=== PATIENT | male | born 1980 | race Caucasian/White ===

== ENCOUNTER 2018-02-02 15:39 | Emergency (ER) | payer OTHER ==
--- OUTSIDE RECORDS SUMMARY | 2018-02-02 16:22 | XMS REPORT ---
:1980 External Reference #:[id number] Author Organization Ricki Mayers M.D. Address [address] [place] [address] Phone [phone] Care Team Providers Name Role Phone Ricki Mayers M.D. Care Team Information Business Unit Controller Unavailable Payers Type Date Identification Numbers Payment Provider Subscriber Commercial Policy Number: [id number] [employer] PayID: [id number] 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 ETOH Use Rarely consumes alcohol Smoking 02/09/2017 Patient has never smoked Recreational Drug Use Denies Drug Use Daily Caffeine Consumes on average 64oz of soda per day Allergies, Adverse Reactions, Alerts Date Description Reaction Status Severity Comments 12/27/2011 NKDA active Medications Medication Date Status Form Strength Qnty SIG Indications Ordering Provider Zithromax 01/30/ Active Tablets 250mg 6tabs day L04.9 Ricki mello s MYulissa qd,thend ays two thru five one pill every day [facility] Omeprazole 01/30/ Active Capsules 20.6(20Bas 30caps one K21.[address] bhatt) mg daily Thee martin M.D. Levaquin 10/10/ Hx Tablets 500mg 10tabs 1 by 604.90 Ricki 2014 - mouth [place] 01/30/ every sMichael 2015 day Ciprofloxacin 12/27/ Hx Tablets 500mg 28tabs 1 by 604.90 Ricki HCL 2014 - mouth [place] 10/10/ twice a sMichael 2014 day Sulfamethoxazole 06/05/ Hx Tablets 800-160mg 20tabs 1 po bid 681.9 Ricki /Trimethoprim DS 2012 - [place] 12/27/ sMichael 2013 Nizoral 06/05/ Hx 200mg 10unit one qd 692.9 Ricki 2012 - s [place] 02/08/ sMichael 2015 Amoxicillin 10/19/ Hx Tablets 875mg 20tabs 1 po bid 462 Ricki 2012 - [place] 02/08/ sMichael 2015 Amoxicillin 04/27/ Hx Tablets 875mg 20tabs 1 po bid 704.8 Ricki 2011 - [place] 02/08/ Michael martin 2016 Benzonatate 04/27/ Hx Capsules 200mg 30caps one tid 786.2 Ricki 2011 - prn [place] 02/08/ cough Michael martin 2015 Immunizations CPT Code Status Date Vaccine Lot # [id number] Given 12/27/2011 Tdap Vaccine over 7 yrs old [id number] Vital Signs Date Vital Result Comment 01/30/2018 Weight 192.00 lb Body Temperature 99.7 F 02/09/2017 Weight 183.50 lb BP Systolic 100 mmHg BP Diastolic 80 mmHg Height 71.75 inches 5'11.75" Heart Rate 60 /min Body Temperature 97.0 F Respiratory Rate 16 /min BMI (Body Mass Index) 25.1 kg/m2 02/09/2016 Weight 184.00 lb Height 71 inches 5'11" BMI (Body Mass Index) 25.7 kg/m2 01/30/2015 Weight 184.00 lb BP Systolic 106 mmHg BP Diastolic 70 mmHg Height 71 inches 5'11" Heart Rate 76 /min Body Temperature 98.8 F Respiratory Rate 12 /min BMI (Body Mass Index) 25.7 kg/m2 10/10/2014 Weight 182.00 lb BP Systolic 100 mmHg BP Diastolic 60 mmHg 12/27/2013 Weight 182.00 lb BP Systolic 120 mmHg BP Diastolic 60 mmHg Height 71 inches 5'11" Heart Rate 68 /min Body Temperature 98.4 F Respiratory Rate 12 /min BMI (Body Mass Index) 25.4 kg/m2 06/05/2013 Weight 182.00 lb Body Temperature 97.2 F 04/18/2013 Weight 179.00 lb BP Systolic 110 mmHg BP Diastolic 70 mmHg 10/19/2012 Weight 184.00 lb BP Systolic 100 mmHg BP Diastolic 80 mmHg Body Temperature 97.5 F 10/03/2012 Weight 185.00 lb BP Systolic 118 mmHg BP Diastolic 76 mmHg 04/27/2012 Weight 181.00 lb BP Systolic 110 mmHg BP Diastolic 60 mmHg Height 70.6 inches 5'10.60" Body Temperature 98.8 F BMI (Body Mass Index) 25.5 kg/m2 12/27/2011 Weight 181.00 lb BP Systolic 118 mmHg BP Diastolic 70 mmHg Height 70.6 inches 5'10.60" BMI (Body Mass Index) 25.5 kg/m2 Results Test Date Test Result H/L Range Note CBS W/Automated Diff 02/06/2015 White Blood Count 10.2 K/uL 3.4-10.5 Red Blood Count 5.42 M/uL 4.20-5.80 Hemoglobin 15.8 gm/dL 12.8-17.0 Hematocrit 45.2 % 38.0-48.0 Mean Cell Volume 83.4 fl 80.0-96.0 Mean Corpuscular HGB 29.2 pg 27.0-33.0 Mean Corpuscular HGB Conc 35.0 g/dL 31.7-36.0 Platelet Count 287 K/uL 150-400 Red Cell Distri Width SD 38.7 fl 36-51 Red Cell Distri Width %CV 12.7 % 11.6-15.8 Mean Platelet Volume 11.3 fL High 6.6-10.6 Neut% 56.9 % 33.0-73.0 Lymph % 26.0 % 17.0-56.0 [place] % 9.1 % 0.0-10.0 Eo% 6.6 % High 0.0-5.0 Bas% 1.4 % High 0.1-1.0 Neut# 5.78 K/uL 1.8-7.0 Lymph # 2.64 K/uL 1.8-7.0 Bethel # 0.92 K/uL High 0.0-0.8 Eos # 0.67 K/uL High 0.0-0.5 Baso # 0.14 K/uL 0.1-0.2 Basic Metabolic Panel 02/06/2015 Glucose 101 mg/dL 74-106 BUN 16 mg/dL 7-18 Creatinine 1.2 mg/dL 0.6-1.3 Glom Filtration Rate, Estimate >60 mL/min >60 If >60 mL/min >60 1 BUN/Creat 13.3 ratio Sodium 137 mmol/L 136-145 Potassium 4.3 mmol/L 3.5-5.1 Chloride 103 mmol/L 98-107 Carbon Dioxide 25 mmol/L 21-32 Anion Gap 9 mEq/L 8-16 Calcium 9.5 mg/dL 8.5-10.1 LDL Cholesterol Profile 02/06/2015 Cholesterol 183 mg/dL < 200 2 Triglycerides 186 mg/dL < 150 3 HDL Cholesterol 29 mg/dL > 40 4 LDL-Cholesterol 117 mg/dL < 100 5 Liver Function Tests 02/06/2015 Total Protein 8.4 g/dL High 6.4-8.2 Albumin 4.0 g/dL 3.4-5.0 Globulin 4.4 g/dL High 1.9-4.3 Alb/Glob 0.9 ratio Bilirubin,Total 0.5 mg/dL 0.2-1.0 Bilirubin,Direct 0.1 mg/dL 0.0-0.2 Bilirubin,Indirect 0.4 mg/dL 0.0-0.9 Sgot/Ast 27 U/L 15-37 SGPT/Alt 49 U/L 12-78 Alkaline Phosphatase 79 U/L 45-117 Laboratory test finding 02/06/2015 TSH Reflex FT4 and/or 2.55 uIU/mL 0.36 -3.74 6 FT3 Fluid Culture W/ Gram 06/05/2013 Gram Stain See Note 7 Stain Fluid Culture See Note 8 Laboratory test finding 05/04/2013 Troponin-I < 0.02 ng/mL 0.00-0.50 9 CBS W/Automated Diff 05/04/2013 White Blood Count 10.5 K/uL 3.4-10.5 Red Blood Count 4.89 M/uL 4.20-5.80 Hemoglobin 14.7 gm/dL 12.8-17.0 Hematocrit 40.2 % 38.0-48.0 Mean Cell Volume 82.2 fl 80.0-96.0 Mean Corpuscular HGB 30.1 pg 27.0-33.0 Mean Corpuscular HGB Conc 36.6 g/dL High 31.7-36.0 Platelet Count 258 K/uL 150-400 Red Cell Distri Width SD 36.5 fl 36-51 Red Cell Distri Width %CV 12.2 % 11.6-15.8 Mean Platelet Volume 10.9 fL High 6.6-10.6 Neut% 54.7 % 33.0-73.0 Lymph % 28.4 % 17.0-56.0 Bethel % 9.0 % 0.0-10.0 Eo% 6.9 % High 0.0-5.0 Bas% 1.0 % 0.1-1.0 Neut# 5.76 K/uL 1.8-7.0 Lymph # 2.99 K/uL 1.2-4.0 Bethel # 0.95 K/uL High 0.0-0.6 Eos # 0.73 K/uL High 0.0-0.5 Baso # 0.11 K/uL 0.1-0.2 Comprehensive Metabolic Panel 05/04/2013 Glucose 93 mg/dL 76-115 BUN 17 mg/dL 5-23 Creatinine 1.0 mg/dL 0.5-1.4 Glom Filtration Rate, Estimate >60 mL/min >60 If >60 mL/min >60 10 BUN/Creat 17.0 ratio Sodium 139 mmol/L 136-145 Potassium 3.9 mmol/L 3.5-5.1 Chloride 104 mmol/L 98-107 Carbon Dioxide 25 mEq/L 18-29 Anion Gap 14 mEq/L 8-16 Calcium 9.3 mg/dL 8.5-10.1 Total Protein 7.3 g/dL 6.3-8.0 Albumin 3.9 g/dL 3.5-5.0 Globulin 3.4 g/dL 1.9-4.3 Alb/Glob 1.1 ratio Bilirubin,Total 0.5 mg/dL 0.2-1.2 Sgot/Ast 13 U/L Low 16-40 SGPT/Alt 28 U/L Low 30-65 Alkaline Phosphatase 56 U/L 50-136 Basic Metabolic Panel 05/02/2013 Glucose 80 mg/dL 76-115 BUN 16 mg/dL 5-23 Creatinine 1.1 mg/dL 0.5-1.4 Glom Filtration Rate, Estimate >60 mL/min >60 If >60 mL/min >60 11 BUN/Creat 14.5 ratio Sodium 139 mmol/L 136-145 Potassium 3.7 mmol/L 3.5-5.1 Chloride 103 mmol/L 98-107 Carbon Dioxide 31 mEq/L High 18-29 Anion Gap 9 mEq/L 8-16 Calcium 9.8 mg/dL 8.5-10.1 Laboratory test finding 05/02/2013 Uric Acid 3.9 mg/dL 2.1-7.4 Sedimentation Rate 1 mm/hr 0-15 CBS W/Automated Diff 05/02/2013 White Blood Count 11.8 K/uL High 3.4-10.5 Red Blood Count 5.34 M/uL 4.20-5.80 Hemoglobin 15.8 gm/dL 12.8-17.0 Hematocrit 43.6 % 38.0-48.0 Mean Cell Volume 81.6 fl 80.0-96.0 Mean Corpuscular HGB 29.6 pg 27.0-33.0 Mean Corpuscular HGB Conc 36.2 g/dL High 31.7-36.0 Platelet Count 291 K/uL 150-400 Red Cell Distri Width SD 36.6 fl 36-51 Red Cell Distri Width %CV 12.4 % 11.6-15.8 Mean Platelet Volume 11.2 fL High 6.6-10.6 Neut% 55.7 % 33.0-73.0 Lymph % 28.4 % 17.0-56.0 Bethel % 8.1 % 0.0-10.0 Eo% 6.6 % High 0.0-5.0 Bas% 1.2 % High 0.1-1.0 Neut# 6.58 K/uL 1.8-7.0 Lymph # 3.35 K/uL 1.2-4.0 Bethel # 0.95 K/uL High 0.0-0.6 Eos # 0.78 K/uL High 0.0-0.5 Baso # 0.14 K/uL 0.1-0.2 Urinalysis With Microscopic 01/23/2013 Urine Color YELLOW Yellow Urine Clarity SL CLOUDY Clear Urine Glucose - Dipstick NEGATIVE mg/dL Negative Urine Bilirubin - Dipstick NEGATIVE Negative Urine Ketone NEGATIVE mg/dL Negative Urine Specific [place] 1.010 1.010-1.030 Urine Blood LARGE High Negative Urine PH 8.0 High 6.5-7.5 Urine Protein - Dipstick NEGATIVE mg/dL Negative Urine Urobilinogen - Dipstick 0.2 E.U./dL 0.2-1.0 Urine Nitrite - Dipstick NEGATIVE Negative Urine Leuk Esterase NEGATIVE Negative Urine RBC 10-20 rbc/hpf High 0-7 Urine WBC 0-2 wbc/hpf 0-7 Urine Epithelial Cells VERY FEW NONESEEN/lpf Laboratory test finding 01/23/2013 Urine Screen See Note 12 Comprehensive Metabolic Panel 01/23/2013 Glucose 123 mg/dL High 76-115 BUN 14 mg/dL 5-23 Creatinine 1.2 mg/dL 0.5-1.4 Glom Filtration Rate, Estimate >60 mL/min >60 If >60 mL/min >60 13 BUN/Creat 11.6 ratio Sodium 141 mmol/L 136-145 Potassium 3.9 mmol/L 3.5-5.1 Chloride 108 mmol/L High 98-107 Carbon Dioxide 21 mEq/L 18-29 Anion Gap 16 mEq/L 8-16 Calcium 9.3 mg/dL 8.5-10.1 Total Protein 8.1 g/dL High 6.3-8.0 Albumin 4.1 g/dL 3.5-5.0 Globulin 4.0 g/dL 1.9-4.3 Alb/Glob 1.0 ratio Bilirubin,Total 0.5 mg/dL 0.2-1.2 Sgot/Ast 21 U/L 16-40 SGPT/Alt 43 U/L 30-65 Alkaline Phosphatase 69 U/L 50-136 Laboratory test finding 01/23/2013 Lipase 154 U/L 28-380 CBC W/Automated Diff 01/23/2013 White Blood Count 9.6 K/uL 3.4-10.5 Red Blood Count 5.59 M/uL 4.20-5.80 Hemoglobin 16.2 gm/dL 12.8-17.0 Hematocrit 45.3 % 38.0-48.0 Mean Cell Volume 81.0 fl 80.0-96.0 Mean Corpuscular HGB 29.0 pg 27.0-33.0 Mean Corpuscular HGB Conc 35.8 g/dL 31.7-36.0 Platelet Count 319 K/uL 150-400 Red Cell Distri Width SD 35.3 fl Low 36-51 Red Cell Distri Width %CV 12.1 % 11.6-15.8 Mean Platelet Volume 10.8 fL High 6.6-10.6 Neut% 54.9 % 33.0-73.0 Lymph % 27.2 % 17.0-56.0 Bet[place] % 7.9 % 0.0-10.0 Eo% 7.9 % High 0.0-5.0 Bas% 2.1 % High 0.1-1.0 Neut# 5.28 K/uL 1.8-7.0 Lymph # 2.62 K/uL 1.2-4.0 Bethel # 0.76 K/uL High 0.0-0.6 Eos # 0.76 K/uL High 0.0-0.5 Baso # 0.20 K/uL 0.1-0.2 Laboratory test finding 01/19/2013 Liver Function Tests See Note 14 Basic Metabolic Panel See Note 15 Lipase See Note 16 CBS W/Automated Diff See Note 17 Laboratory test finding 01/19/2013 Urine Screen See Note 18 Urinalysis With Microscopic 01/19/2013 Urine Color YELLOW Yellow Urine Clarity SL CLOUDY Clear Urine Glucose - Dipstick NEGATIVE mg/dL Negative Urine Bilirubin - Dipstick NEGATIVE Negative Urine Ketone NEGATIVE mg/dL Negative Urine Specific [place] >=1.030 1.010-1.030 Urine Blood LARGE High Negative Urine PH 6.0 Low 6.5-7.5 Urine Protein - Dipstick 30 mg/dL High Negative Urine Urobilinogen - Dipstick 0.2 E.U./dL 0.2-1.0 Urine Nitrite - Dipstick NEGATIVE Negative Urine Leuk Esterase NEGATIVE Negative Urine RBC 30-50 rbc/hpf High 0-7 Urine WBC 0-2 wbc/hpf 0-7 Urine Epithelial Cells FEW NONESEEN/lpf Urine Bacteria VERY FEW NONESEEN Urine Mucus LARGE NONESEEN Laboratory test finding 10/19/2012 Throat Strep Screen See Note 19 Xray 10/04/2012 CT scan of abd and <pending> pelvis Laboratory test finding 04/27/2012 Throat Strep Screen See Note 20 Comprehensive Metabolic 03/10/2012 Glucose 117 mg/dL High 76-115 Panel BUN 15 mg/dL 5-23 Creatinine 1.1 mg/dL 0.5-1.4 Glom Filtration Rate, Estimate >60 mL/min >60 If >60 mL/min >60 21 BUN/Creat 13.6 ratio Sodium 136 mmol/L 136-145 Potassium 3.4 mmol/L Low 3.5-5.1 Chloride 101 mmol/L 98-107 Carbon Dioxide 27 mEq/L 18-29 Anion Gap 11 mEq/L 8-16 Calcium 9.5 mg/dL 8.5-10.1 Total Protein 7.8 g/dL 6.3-8.0 Albumin 4.0 g/dL 3.5-5.0 Globulin 3.8 g/dL 1.9-4.3 Alb/Glob 1.1 ratio Bilirubin,Total 0.8 mg/dL 0.2-1.2 Sgot/Ast 36 U/L 16-40 SGPT/Alt 77 U/L High 30-65 Alkaline Phosphatase 52 U/L 50-136 Laboratory test finding 03/10/2012 CK 121 U/L 26-190 Troponin-I < 0.02 ng/mL 0.00-0.50 22 CBS W/Automated Diff 03/10/2012 White Blood Count 9.1 K/uL 3.4-10.5 Red Blood Count 5.40 M/uL 4.20-5.80 Hemoglobin 15.8 gm/dL 12.8-17.0 Hematocrit 44.6 % 38.0-48.0 Mean Cell Volume 82.6 fl 80.0-96.0 Mean Corpuscular HGB 29.3 pg 27.0-33.0 Mean Corpuscular HGB Conc 35.4 g/dL 31.7-36.0 Platelet Count 240 K/uL 150-400 Red Cell Distri Width SD 37.4 fl 36-51 Red Cell Distri Width %CV 12.3 % 11.6-15.8 Mean Platelet Volume 11.2 fL High 6.6-10.6 Neut% 58.1 % 33.0-73.0 Lymph % 23.9 % 17.0-56.0 [place] % 11.2 % High 0.0-10.0 Eo% 5.5 % High 0.0-5.0 Bas% 1.3 % High 0.1-1.0 Neut# 5.30 K/uL 1.8-7.0 Lymph # 2.18 K/uL 1.2-4.0 [place] # 1.02 K/uL High 0.0-0.6 Eos # 0.50 K/uL 0.0-0.5 Baso # 0.12 K/uL 0.1-0.2 Laboratory test finding 03/10/2012 D-Dimer, Quantitative < 0.22 ug/mL 23 1 Note: Persistent reduction for 3 months or more in an eGFR <60 mL/min/1.73 m2 defines CKD. Patients with eGFR values >/=60 mL/min/1.73 m2 may also have CKD if evidence of persistent proteinuria is present. The original MDRD equation for estimated GFR is not valid for patients less than 18 years of age. Additional information may be found at www.kdoqi.org. 2 Reference Guidelines*: Desirable: ........... < 200 mg/dL Borderline High: ..... 200-239 mg/dL High: ................ >=240 mg/dL * The National Cholesterol Education Program (NCEP) 3 Reference Guidelines*: Normal: ............. < 150 mg/dL Borderline High: .... 150-199 mg/dL High: ............... 200-499 mg/dL Very High: .......... > 500 mg/dL * Source: National Cholesterol Education Program (NCEP) 4 Reference Guidelines*: Low HDL: ..... < 40 mg/dL Normal: ..... 40-60 mg/dL Desirable: ... > 60 mg/dL *The National Cholesterol Education Program(NCEP) 5 Reference Guidelines*: Optimal:........... <100 mg/dL Near Optimal....... 100-129 mg/dL Borderline High.... 130-159 mg/dL High............... 160-189 mg/dL Very High.......... >=190 mg/dL * Source: National Cholesterol Education Program (NCEP) 6 QUERY: Reflex add FT3? N QUERY: Reflex add FT4? N 7 GRAM STAIN ! MODERATE GRAM POSITIVE COCCI 8 Organism 1 ! STAPHYLOCOCCUS AUREUS QUANTITY ! MANY Organism 2 ! HAEMOPHILUS PARAINFLUENZAE BETA LACTAMASE (CEFINASE) ! NEGATIVE QUANTITY ! MANY STAPHYLOCOCCUS AUREUS Target Route Dose M.I.C. RX AB COST ------ ----- -------- ------ -- ------ PENICILLIN G >=0.5 R OXACILLIN 0.5 S TETRACYCLINE <=1 S TRIMETHOPRIM/SULFAMETHOXAZOLE BLOOD PO DS <=10 S 0.39 AMOXICILLIN R AMOXICILLIN/CLAVULANATE S AMPICILLIN/SULBACTAM S CEFAZOLIN S GENTAMICIN <=0.5 S ERYTHROMYCIN <=0.25 S CLINDAMYCIN BLOOD PO 300 mg <=0.25 S 0.81 IV 600 mg S 3.01 CIPROFLOXACIN <=0.5 S MOXIFLOXACIN <=0.25 S LEVOFLOXACIN <=0.12 S CEFACLOR S AZITHROMYCIN S CEFUROXIME S PIPERACILLIN R CEFTRIAXONE S VANCOMYCIN <=0.5 S 9 0 - 0.5 ng/mL: No evidence of myocardial injury 0.6 - 1.4 ng/mL: Mild elevation, suggesting possible myocardial injury > 1.4 ng/mL: Consistent with myocardial injury 10 Note: Persistent reduction for 3 months or more in an eGFR <60 mL/min/1.73 m2 defines CKD. Patients with eGFR values >/=60 mL/min/1.73 m2 may also have CKD if evidence of persistent proteinuria is present. The original MDRD equation for estimated GFR is not valid for patients less than 18 years of age. Additional information may be found at www.kdoqi.org. 11 Note: Persistent reduction for 3 months or more in an eGFR <60 mL/min/1.73 m2 defines CKD. Patients with eGFR values >/=60 mL/min/1.73 m2 may also have CKD if evidence of persistent proteinuria is present. The original MDRD equation for estimated GFR is not valid for patients less than 18 years of age. Additional information may be found at www.kdoqi.org. 12 01/23/13 LAB.HNI Deleted by [facility] 13 Note: Persistent reduction for 3 months or more in an eGFR <60 mL/min/1.73 m2 defines CKD. Patients with eGFR values >/=60 mL/min/1.73 m2 may also have CKD if evidence of persistent proteinuria is present. The original MDRD equation for estimated GFR is not valid for patients less than 18 years of age. Additional information may be found at www.kdoqi.org. 14 PATIENT REFUSED PER 01/19/135 15 PATIENT REFUSED PER 01/19/13224 16 PATIENT REFUSED PER 01/19/13224 17 PATIENT REFUSED PER 01/19/13224 18 01/19/13 LAB.GSP Deleted by [facility] 19 NO BETA STREPTOCOCCI ISOLATED 20 NO BETA STREPTOCOCCI ISOLATED 21 Note: Persistent reduction for 3 months or more in an eGFR <60 mL/min/1.73 m2 defines CKD. Patients with eGFR values >/=60 mL/min/1.73 m2 may also have CKD if evidence of persistent proteinuria is present. The original MDRD equation for estimated GFR is not valid for patients less than 18 years of age. Additional information may be found at www.kdoqi.org. 22 0 - 0.5 ng/mL: No evidence of myocardial injury 0.6 - 1.4 ng/mL: Mild elevation, suggesting possible myocardial injury > 1.4 ng/mL: Consistent with myocardial injury 23 <=0.49 ug/mL - Low likelihood of DIC, DVT or Pulmonary Embolism >0.49 ug/mL - Additional testing should be done to rule out DIC, DVT, or Pulmonary embolism as clinically indicated. ([facility] has established a 97.89% negative predictive value for thrombotic disease when a cutoff value of 0.5 ug/mL is used.) Procedures Date CPT Code Description Status 03/10/2016 54883 Exc. Lesion Extrem .6 -1.0 CM Completed 02/09/2016 74376 Color/Snellen Vision Completed 02/09/2016 36498 Audiogram, Screen Only Pure Tone Completed 01/30/2015 23034 Snellen Only Vison Completed 01/30/2015 94227 Audiogram, Screen Only Pure Tone Completed 12/27/2013 82127 Snellen Only Vison Completed 12/27/2013 18533 Audiogram, Screen Only Pure Tone Completed 10/19/2012 55747 Cerumen Removal w/instrument Completed 12/27/2011 15968 Snellen Only Vison Completed 12/27/2011 76489 Hearing Test Completed 07/22/2009 95196 Excisn Benign Lesion 1.1-2.0 CM Completed 05/27/2009 03758 Therapeutic prophylactic inject Completed 03/14/2007 99272 EKG Completed 03/11/2003 39811 Shaving Lesion, 0.6 CM To 1.0 CM Completed Encounters Type Date Location Provider CPT E/M Dx Office Visit 01/30/2018 2:45p [place] [address] L04.9 Office Visit 02/09/2017 2:00p Main Office Ricki Mayers M.D. 55320 Z00.00 K21.9 Office Visit 02/09/2016 3:45p Main Office Ricki Mayers M.D. 02572 Z00.01 K21.9 D48.5 R53.1 R13.10 Office Visit 01/30/2015 1:30p [place] [address] V70.0 530.81 300.00 Office Visit 10/10/2014 3:15p [place] [address] 604.90 Office Visit 12/27/2013 2:30p [place] [address] V70.0 604.90 Office Visit 06/05/2013 10:15a [place] [address] 681.9 692.9 Office Visit 04/18/2013 4:30p [place] [address] 719.48 214.1 Office Visit 10/19/2012 1:30p [place] [address] 478.9 462 380.4 Office Visit 10/03/2012 2:45p [place] [address] 724.5 592.0 Office Visit 04/27/2012 9:15a [place] [address] 478.9 462 704.8 466.0 786.2 Office Visit 12/27/2011 1:30p [place] [address] 592.0 V70.0 V06.1 Office Visit 01/05/2011 4:00p [place] [address] 691.8 456.4 Office Visit 10/05/2010 2:15p [place] [address] 781.7 780.79 Office Visit 02/17/2010 11:15a [place] [address] 214.9 111.0 Office Visit 07/16/2009 2:30p [place] [address] 739.9 Office Visit 05/27/2009 11:00a [place] [address] 079.99 558.9 276.51 787.01 Office Visit 02/13/2008 2:30p [place] [address] 682.5 Office Visit 08/01/2007 4:00p [place] [address] 592.0 601.9 Office Visit 07/14/2007 11:00a Main Office Shilpa Medina [facility] [address] 788.41 601.9 Office Visit 06/27/2007 11:00a [place] [address] 601.9 530.81 Office Visit 03/14/2007 2:15p [place] [address] 786.50 530.81 733.6 Plan of Care Future Appointment(s):03/01/2018 2:00 pm - Ricki Mayers M.D. at Main [id number]/30/2018 - Virginia Castro PAL04.9 Acute lymphadenitis, unspecifiedNew Medication:Zithromax 250 mg
[2018-02-02 16:35] VITALS: BP 113/82
--- NOTE | 2018-02-02 17:07 | UC ---
Skin Complaint HPI - HPI Summary HPI Summary: 37 yo male with painful lumps R>L axilla x 4 days' Started on Z-ashley No improvement no f/c Mild dizziness x 3 weeks none today - History of Current Complaint Chief Complaint: UCGeneralIllness Time Seen by Provider: 02/02/18 16:42 Stated Complaint: DIZZINESS,FEVER,BI LUMPS UNDER ARM AREA Hx Obtained From: Patient Onset/Duration: Gradual Onset Timing: Constant Onset Severity: Mild Current Severity: Mild Pain Intensity: 0 Pain Scale Used: 0-10 Numeric Location: Other - bilat axillas Character: Swelling, Redness, Painful Associated Signs & Symptoms: Positive: Tenderness - Allergy/Home Medications Allergies/Adverse Reactions: Allergies Allergy/AdvReac Type Severity Reaction Status Date / Time No Known Allergies Allergy Verified 02/02/18 16:31 Home Medications: Home Medications Azithromycin TAB* [Zithromax TAB (Z-ASHLEY) 250 mg #6 tabs] 250 mg PO DAILY [History Confirmed 02/02/18] Review of Systems Constitutional: Negative Skin: Negative Eyes: Negative ENT: Negative Respiratory: Negative Cardiovascular: Negative Gastrointestinal: Negative Genitourinary: Negative Motor: Negative Neurovascular: Negative Musculoskeletal: Negative Neurological: Negative Psychological: Negative Is Patient Immunocompromised?: No All Other Systems Reviewed And Are Negative: Yes PMH/Surg Hx/FS Hx/Imm Hx Previously Healthy: Yes - Surgical History Surgical History: Yes Surgery Procedure, Year, and Place: KIDNEY STONE PROCEDURES - Family History Known Family History: Positive: None, Renal Disease - Social History Alcohol Use: None Substance Use Type: None Smoking Status (MU): Never Smoked Tobacco Physical Exam Triage Information Reviewed: Yes Appearance: Well-Appearing, No Pain Distress, Well-Nourished Vital Signs: Initial Vital Signs Temp 98.6 F 02/02/18 16:23 Pulse 76 02/02/18 16:23 Resp 17 02/02/18 16:23 BP 121/81 02/02/18 16:23 Pulse Ox 100 02/02/18 16:23 Vital Signs Reviewed: Yes Eye Exam: Normal ENT: Positive: Normal ENT inspection. Negative: Nasal congestion, Nasal drainage, Trismus, Muffled voice, Hoarse voice Neck: Positive: Supple, Nontender Respiratory: Positive: Chest non-tender, Lungs clear, Normal breath sounds Cardiovascular: Positive: RRR, No Murmur Musculoskeletal: Positive: ROM Intact, No Edema Neurological: Positive: Alert Skin Exam: Other - swollen papules bilat axilla R>L no pustules/fluctuance Course/Dx - Diagnoses Provider Diagnoses: inflammatory papules both axilla Discharge - Sign-Out/Discharge Documenting (check all that apply): Patient Departure - Discharge Plan Condition: Stable Disposition: HOME Prescriptions: DOXYcycline CAP(*) [DOXYcycline 100MG CAP(*)] 100 mg PO BID #14 cap Patient Education Materials: Dizziness (ED) Referrals: Ricki Mayers MD [Primary Care Provider] - If Needed Additional Instructions: stop zithromax start doxy twice daily with food warm compresses see your MD if dizziness worsens or new symptoms develop - Billing Disposition and Condition Condition: STABLE Disposition: Home
== END 2018-02-02 17:19 | disposition home or self-care (01) ==
LOC: UCCORT 15:39
DX: R23.8 Other skin changes (principal); R50.9 Fever, unspecified
CPT/HCPCS: 99212; G0463

== ENCOUNTER 2019-08-08 16:17 | Emergency (ER) | payer SELFPAY ==
[2019-08-08 17:19] VITALS: BP 120/86
--- NOTE | 2019-08-08 18:30 | UC ---
Abdominal Pain Male HPI - HPI Summary HPI Summary: 38 yo male has had intermittent sharp right flank pain that lasts seconds He has had renal stones in the past has had a urethral stent and lithotripsy no fever or chills no dysuria/urgency or frequency no urethral d/c or concerns re STD [place] some pressure between rectum and scrotum but no real pain also c/o trouble swallowing > 2yrs....food gets stuck no dyspepsia - History of Current Complaint Chief Complaint: UCGeneralIllness Stated Complaint: RIGHT SIDE BACK PAIN Time Seen by Provider: 08/08/19 17:52 Hx Obtained From: Patient Onset/Duration: Gradual Onset, Lasting Days Severity Initially: Moderate Severity Currently: None Pain Intensity: 0 Pain Scale Used: 0-10 Numeric Location: Other - right flank Character: Sharp Aggravating Factor(s): Nothing Alleviating Factor(s): Spontaneous Resolution Associated Signs And Symptoms: Negative: Diaphoresis, Fever, Cough, Chest Pain, Dizzy, Back Pain, Constipation, Blood in Stool, Urinary Symptoms, Decreased Appetite, Nausea, Vomiting, Diarrhea, Penile Discharge - Allergies/Home Medications Allergies/Adverse Reactions: Allergies Allergy/AdvReac Type Severity Reaction Status Date / Time No Known Allergies Allergy Verified 08/08/19 17:13 Home Medications: Home Medications NK [No Home Medications Reported] 08/08/19 [History Confirmed 08/08/19] PMH/Surg Hx/FS Hx/Imm Hx Previously Healthy: Yes GI/ History: Kidney Stones - Surgical History Surgical History: Yes Surgery Procedure, Year, and Place: KIDNEY STONE PROCEDURES - Family History Known Family History: Positive: None, Renal Disease - Social History Alcohol Use: None Substance Use Type: None Smoking Status (MU): Never Smoked Tobacco Review of Systems All Other Systems Reviewed And Are Negative: Yes Constitutional: Positive: Negative Skin: Positive: Negative Eyes: Positive: Negative ENT: Positive: Negative Respiratory: Positive: Negative Cardiovascular: Positive: Negative Gastrointestinal: Positive: Negative Genitourinary: Positive: Negative Motor: Positive: Negative Neurovascular: Positive: Negative Musculoskeletal: Positive: Negative Neurological: Positive: Negative Psychological: Positive: Negative Physical Exam Triage Information Reviewed: Yes Appearance: Well-Appearing, No Pain Distress, Well-Nourished Vital Signs: Initial Vital Signs Temp 97.8 F 08/08/19 17:14 Pulse 76 08/08/19 17:14 Resp 15 08/08/19 17:14 BP 120/86 08/08/19 17:14 Pulse Ox 98 08/08/19 17:14 Vital Signs Reviewed: Yes Eyes: Positive: Conjunctiva Clear ENT: Positive: Hearing grossly normal. Negative: Nasal congestion, Nasal drainage, Tonsillar exudate, Trismus, Muffled voice, Hoarse voice Neck: Positive: Supple, Nontender, No Lymphadenopathy Respiratory: Positive: Lungs clear, Normal breath sounds, No respiratory distress Cardiovascular: Positive: RRR, No Murmur, Pulses Normal Abdomen Description: Positive: Nontender, No Organomegaly, Soft. Negative: CVA Tenderness (R), CVA Tenderness (L) Male Genital Exam: Positive: Normal Genitalia, No Hernia, Other - one prominent scrotal varicosity. Negative: Bleeding, Epididymal Tenderness, Inguinal Tenderness, Scrotum Tenderness (R), Scrotum Tenderness (L), Testicular Tenderness (R), Testicular Tenderness (L) Musculoskeletal: Positive: ROM Intact, No Edema Neurological: Positive: Alert Psychological Exam: Normal Skin Exam: Normal Skin: Positive: Rashes Diagnostics - Laboratory Lab Results: UA clear Abd Pain Male Course/Dx - Differential Dx/Clinical Impression Provider Diagnosis: Right flank pain, Trouble swallowing Discharge ED - Sign-Out/Discharge Documenting (check all that apply): Patient Departure All imaging exams completed and their final reports reviewed: No Studies - Discharge Plan Condition: Stable Disposition: HOME Patient Education Materials: Chronic Dysphagia (DC), Flank Pain (ED) Referrals: Kassie Escoto MD [Medical Doctor] - If Needed Roxy Leonard MD [Medical Doctor] - 2 Weeks Additional Instructions: Your urine was clear Should the flank pain continue you may need to see a urologist due to your chronic issue with swallowing solids I suggest you see a gi specialist - Billing Disposition and Condition Condition: STABLE Disposition: Home
== END 2019-08-08 18:35 | disposition home or self-care (01) ==
LOC: UCCORT 16:17
DX: R10.9 Unspecified abdominal pain (principal); R13.10 Dysphagia, unspecified
CPT/HCPCS: 81003; 99211; G0463

== ENCOUNTER 2019-09-08 16:31 | Emergency (ER) | payer SELFPAY ==
--- OUTSIDE RECORDS SUMMARY | 2019-09-08 17:13 | XMS REPORT | Continuity of Care Document ---
:1980 External Reference #:[id number] Author Name Kassie Escoto M.D. Address [address] [address] Care Team Providers Name Role Phone Ricki Mayers MD - Family Care Team Information Traffic Investigator Medicine Jonny Snyder MD - Orthopaedic Care Team Information Traffic Investigator [phone] Surgery Problems Active Problems Provider Date H/O: urinary stone Kassie Escoto M.D. Onset: 08/21/2019 Pain in limb Jonny Snyder M.D. Onset: 03/24/2016 Wrist joint pain Jonny Snyder M.D. Onset: 03/24/2016 Lesion of ulnar nerve Jonny Snyder M.D. Onset: 02/20/2016 Sprain of radiocarpal ligament Karen Guillaume PA Onset: 02/11/2016 Social History Type Date Description Comments Sex Unknown Tobacco Use Start: Unknown Never Smoked Cigarettes ETOH Use Denies alcohol use Tobacco Use Start: Unknown Patient has never smoked Recreational Drug Use Denies Drug Use Smoking Status Reviewed: 08/21/19 Patient has never smoked Allergies, Adverse Reactions, Alerts Description No Known Drug Allergies Medications Active Medications SIG Qnty Indications Ordering Provider Date Bactrim DS 1 tab by mouth 30tabs N41.1 Kassie Escoto 08/21/2019 800-160mg twice a day M.D. Tablets Immunizations Description No Information Available Vital Signs Date Vital Result Comment 08/21/2019 11:55am BP Systolic Sitting Left Arm 125 mmHg BP Diastolic Sitting Left Arm 83 mmHg Body Temperature 97.5 F Heart Rate 76 /min Respiratory Rate 16 /min Height 71.5 inches 5'11.50" Weight 187.00 lb Pain Level 2 uncomfortable groin pain BMI (Body Mass Index) 25.7 kg/m2 BSA (Body Surface Area) 2.06 m2 [place] body weight in kilograms 79 kg O2 % BldC Oximetry 96 % 02/11/2016 10:20am BP Systolic 156 mmHg BP Diastolic 100 mmHg Heart Rate 74 /min Height 71.5 inches 5'11.50" Weight 184.00 lb BMI (Body Mass Index) 25.3 kg/m2 BSA (Body Surface Area) 2.05 m2 [place] body weight in kilograms 79 kg Results Description No Information Available Procedures Description No Information Available Medical Devices Description No Information Available Encounters Description No Information Available Assessments Date Code Description Provider 08/21/2019 Z87.442 Personal history of urinary calculi Kassie Escoto M.D. 08/21/2019 N41.1 Chronic prostatitis Kassie Escoto M.D. Plan of Treatment 08/21/2019 - Kassie Escoto M.D.Z87.442 Personal history of urinary calculiNew Labs:Ua RFX Micro & Culture II, Ordered: 08/21/19New Xrays: Ultrasound, Renal & Bladder, Ordered: 08/21/19Comments:With his history of kidney stones and oriented imaging a renal ultrasound to assess for kidney stones and vvvnafkeclwpnoF22.1 Chronic prostatitisNew Medication:Bactrim DS 800- 160 mg - 1 tab by mouth twice a dayComments:Patient could potentially have prostatitis. He has tried NSAIDs previously. We'll do a trial of Bactrim for 2 weeks and patient will follow up with me after. Functional Status Description No Information Available Mental Status Description No Information Available Referrals Description No Information Available
[2019-09-08 17:19] VITALS: BP 110/74
--- NOTE | 2019-09-08 17:27 | UC ---
Throat Pain/Nasal Siva HPI - HPI Summary HPI Summary: 38-year-old male who complains of a sore throat over the past couple days. He has been around coworkers who have had strep. He denies any fever or chills. - History of Current Complaint Chief Complaint: UCGeneralIllness Stated Complaint: SORE THROAT Time Seen by Provider: 09/08/19 17:13 Hx Obtained From: Patient Onset/Duration: Gradual Onset Severity: Mild Pain Intensity: 4 Cough: None Associated Signs & Symptoms: Positive: Negative - Allergies/Home Medications Allergies/Adverse Reactions: Allergies Allergy/AdvReac Type Severity Reaction Status Date / Time No Known Allergies Allergy Verified 09/08/19 17:19 Home Medications: Home Medications NK [No Home Medications Reported] 08/08/19 [History Confirmed 09/08/19] PMH/Surg Hx/FS Hx/Imm Hx Previously Healthy: Yes GI/ History: Kidney Stones - Surgical History Surgical History: Yes Surgery Procedure, Year, and Place: KIDNEY STONE PROCEDURES - Family History Known Family History: Positive: None, Renal Disease - Social History Occupation: Employed Full-time Alcohol Use: None Substance Use Type: None Smoking Status (MU): Never Smoked Tobacco Review of Systems All Other Systems Reviewed And Are Negative: Yes ENT: Positive: Sore Throat Is Patient Immunocompromised?: No Physical Exam Triage Information Reviewed: Yes Appearance: Well-Appearing, No Pain Distress, Well-Nourished Vital Signs: Initial Vital Signs Temp 98.2 F 09/08/19 17:16 Pulse 79 09/08/19 17:16 Resp 16 09/08/19 17:16 BP 110/74 09/08/19 17:16 Pulse Ox 100 09/08/19 17:16 Vital Signs Reviewed: Yes Eyes: Positive: Conjunctiva Clear ENT: Positive: Hearing grossly normal, Pharyngeal erythema - Very minimal pharyngeal erythema, TMs normal, Uvula midline. Negative: Tonsillar swelling, Tonsillar exudate, Trismus, Muffled voice, Hoarse voice Neck: Positive: Supple, Nontender, No Lymphadenopathy Respiratory: Positive: Lungs clear, Normal breath sounds, No respiratory distress, No accessory muscle use Cardiovascular: Positive: RRR, No Murmur, Pulses Normal, Brisk Capillary Refill Musculoskeletal Exam: Normal Neurological Exam: Normal Psychological Exam: Normal Skin Exam: Normal Throat Pain/Nasal Course/Dx - Course Course Of Treatment: Rapid strep test: Negative Patient is comfortable here and in no distress. - Differential Dx/Diagnosis Provider Diagnosis: Pharyngitis Discharge ED - Sign-Out/Discharge Documenting (check all that apply): Patient Departure All imaging exams completed and their final reports reviewed: No Studies - Discharge Plan Condition: Good Disposition: HOME Patient Education Materials: Pharyngitis (ED) Referrals: [facility] [Outside] No Primary Care Phys,NOPCP [Primary Care Provider] - Additional Instructions: Increase fluids, warm salt water gargles, throat lozenges. Follow up with your primary care provider or [facility] if no improvement in 3 or 4 days. - Billing Disposition and Condition Condition: GOOD Disposition: Home
== END 2019-09-08 17:48 | disposition home or self-care (01) ==
LOC: UCCORT 16:31
DX: J02.9 Acute pharyngitis, unspecified (principal)
CPT/HCPCS: 87651; 99211; G0463